=== PATIENT | female | born 1995 | race Caucasian/White ===

== ENCOUNTER 2019-06-16 18:26 | Emergency (ER) | payer MEDICAID ==
[~2019-06-16] VITALS: Ht 157.5 cm; Wt 49.9 kg
[2019-06-16 18:31] VITALS: BP 114/75
--- NOTE | 2019-06-16 18:35 | NUR ---
pts mother jorge [phone]
[2019-06-16] MEDS ORDERED: NACL 0.9% 1,000 ML IV ONE (18:40)
--- NOTE | 2019-06-16 19:18 | NUR ---
ATTEMPTED TO ASSESS PATIENT AT THIS TIME. PATIENT NOT FOUND IN BED OR IN ED DEPARTMENT. ER CHARGE AND MD MADE AWARE. SENT BELONGINGS WITH SECURITY.
--- NOTE | 2019-06-16 19:30 | NUR ---
ATTEMPTS TO LOCATE THE PATIENT THROUGHOUT THE HOSPITAL WERE UNSUCCESSFUL. PATIENT LEFT WITHOUT BEING SEEN BY DR. CUEVAS. NO FURTHER CARE PROVIDED FOR PATIENT.
== END 2019-06-16 19:30 | disposition left against medical advice (07) ==
LOC: MED 18:26
DX: F10.10 Alcohol abuse, uncomplicated (principal); Z53.21 Procedure and treatment not carried out due to patient leaving prior to being seen by health care provider

== ENCOUNTER 2020-05-11 20:43 | Emergency (ER) | payer MEDICAID, OTHER ==
[~2020-05-11] VITALS: Ht 157.5 cm; Wt 77.1 kg
[2020-05-11 21:04] VITALS: BP 104/75
--- NOTE | 2020-05-11 21:07 | NUR ---
PT AMBULATED TO BED 1 WITH STEADY GAIT
--- NOTE | 2020-05-11 21:10 | NUR ---
PT 25 Y/O FEMALE BIB SELF FOR R JAMESON LAC. LAC OCCURED YESTERDAY AFTER DROPPING A MIRRON ON J[place]. BLEEDING CONTROLED. EDGES CLEAN AND APPROXIMATED. PT DENIES PAIN 0/10. NO REDNESS, WARM TO TOUCH. NO PURLUENT DRAINAGE. BED LOCKED AND IN LOWEST POSTION. VSS. MEDHX: NONE ALLERGIES:NKA
--- NOTE | 2020-05-11 21:24 | NUR ---
NICOLLE EMT AT BEDSIDE CLEANING WOUND.
[2020-05-11] MEDS ORDERED: BACITRACIN OINT 500 UNITS/GM PKT TP ONE ×2 (22:03→22:05)
--- NOTE | 2020-05-11 22:04 | NUR ---
WOUND CARE BEING PERFORMED AT BEDSIDE.
--- NOTE | 2020-05-11 22:10 | NUR ---
CONSENT FOR TDAP VACCINE SIGNED.
[2020-05-11 22:15] VITALS: BP 104/75
== END 2020-05-11 22:15 | disposition home or self-care (01) ==
LOC: MED 20:43
DX: S81.811A Laceration without foreign body, right lower leg, initial encounter (principal); X58.XXXA Exposure to other specified factors, initial encounter; Y93.89 Activity, other specified; Y92.89 Other specified places as the place of occurrence of the external cause; Y99.8 Other external cause status
CPT/HCPCS: 90471; 90715; 99283